=== PATIENT | male | born 1950 | race Caucasian/White ===

== ENCOUNTER 2018-11-06 09:17 | Emergency (ER) | payer OTHER ==
[~2018-11-06] VITALS: Ht 185.4 cm; Wt 102.1 kg
[~2018-11-06 09:17] MED LIST: ADVIL200 M1 PO; AMOX TR-K CLV1 EAC4 PO; AUGMENTIN 875875 MG PO; CYCLOBENZAPRINE5 MG PO; HYDROCODON-ACE1 EAC7 PO; LORAZEPAM 1 MG T1 M1 PO; MIRALAX255 GM PO; NICOTINE PATCH1 EAC1 TRANSDERM; PAIN & FEVER325 MG PO
[2018-11-06 09:57] LABS: ABSOLUTE BASOPHILS 0.1 thou/uL (0.0-0.2); ABSOLUTE EOSINOPHILS 0.1 thou/uL (0.0-0.7); ABSOLUTE LYMPHOCYTES 1.9 thou/uL (0.8-5.3); ABSOLUTE MONOCYTES 0.5 thou/uL (0.0-1.2); ABSOLUTE NEUTROPHILS 3.2 thou/uL (1.6-8.1); BASOPHILS 0.9 %; EOSINOPHILS 2.2 %; HEMATOCRIT 43.2 % (42.0-52.0); HEMOGLOBIN 14.8 gm/dL (14.0-18.0); LYMPHOCYTES 32.5 %; MCH 31.4 pg (26.0-34.0); MCHC 34.1 g/dL (28.0-37.0); MONOCYTES 7.9 %; MPV 8.4 fl. (7.2-11.1); NUCLEATED RBCS 0 /100WBC; PLATELET COUNT* 303 thou/uL (150-400); POLYS 56.5 %; RDW-CV 13.3 % (10.5-14.5); WBC 5.7 thou/uL (4.0-11.0)
[2018-11-06 10:15] LABS: CALCIUM 8.9 mg/dL (8.5-10.1); CREATININE 0.9 mg/dL (0.6-1.3); POTASSIUM 3.9 mmol/L (3.5-5.1)
[2018-11-06] MEDS ORDERED: PROTONIX 20 MG20 MG PO (10:16)
[2018-11-06] MEDS ORDERED: ZYLOPRIM300 MG PO (10:16)
[2018-11-06] MEDS ORDERED: ALLERGY MEDICATION (10:17)
[2018-11-06 10:20] LABS: ALBUMIN 3.5 g/dL (3.4-5.0); TOTAL BILIRUBIN 0.5 mg/dL (<0.1-1.0); TOTAL PROTEIN 7.6 g/dL (6.4-8.2)
[2018-11-06] MEDS ORDERED: REGLAN 10 MG TA10 MG PO (12:51)
[2018-11-06 13:12] VITALS: BP 164/86
== END 2018-11-06 13:13 | disposition home or self-care (01) ==
LOC: M.ERS 09:17
PROVIDERS: Personal Emergency Response Attendant
DX: K22.2 Esophageal obstruction (principal); F17.210 Nicotine dependence, cigarettes, uncomplicated; M10.9 Gout, unspecified

== ENCOUNTER → 2018-12-18 | Outpatient (CLI) | payer OTHER ==
[~2018-12-18] MED LIST changes: +ALLERGY MEDICATION; +PROTONIX 20 MG20 MG PO; +REGLAN 10 MG TA10 MG PO; +ZYLOPRIM300 MG PO
== END ==
LOC: M.RAD 12-09 15:12 → M.ULTRA 09:00
DX: Z13.6 Encounter for screening for cardiovascular disorders (principal); M81.0 Age-related osteoporosis without current pathological fracture

== ENCOUNTER 2019-03-30 14:21 | Emergency (ER) | payer OTHER ==
[~2019-03-30] VITALS: Ht 185.4 cm; Wt 102.1 kg
[2019-03-30 15:27] LABS: ABSOLUTE BASOPHILS 0.1 thou/uL (0.0-0.2); ABSOLUTE EOSINOPHILS 0.1 thou/uL (0.0-0.7); ABSOLUTE LYMPHOCYTES 2.1 thou/uL (0.8-5.3); ABSOLUTE MONOCYTES 0.6 thou/uL (0.0-1.2); ABSOLUTE NEUTROPHILS 5.7 thou/uL (1.6-8.1); BASOPHILS 1.2 %; EOSINOPHILS 1.2 %; HEMATOCRIT 43.5 % (42.0-52.0); HEMOGLOBIN 14.8 gm/dL (14.0-18.0); LYMPHOCYTES 24.4 %; MCH 30.8 pg (26.0-34.0); MCV 90.5 fL (80.0-100.0); MONOCYTES 6.6 %; MPV 8.5 fl. (7.2-11.1); NUCLEATED RBCS 0 /100WBC; PLATELET COUNT* 363 thou/uL (150-400); POLYS 66.6 %; RBC 4.81 mil/uL (4.50-6.00); RDW-CV 14.7 % (10.5-14.5); WBC 8.6 thou/uL (4.0-11.0)
[2019-03-30 15:37] LABS: APTT 32.2 Seconds (25.0-31.3); INR 1.1; PROTIME 11.2 Seconds (9.20-11.50)
[2019-03-30 15:39] LABS: CREATININE 0.8 mg/dL (0.6-1.3)
[2019-03-30 15:43] LABS: ALBUMIN 3.8 g/dL (3.4-5.0); TOTAL BILIRUBIN 0.7 mg/dL (<0.1-1.0); TOTAL PROTEIN 8.2 g/dL (6.4-8.2)
[2019-03-30] MEDS ORDERED: ONDANSETRON HCL4 M2 PO (16:47)
[2019-03-30 17:38] VITALS: BP 133/81
== END 2019-03-30 17:40 | disposition home or self-care (01) ==
LOC: M.ERS 14:21
PROVIDERS: Nurse Practitioner Family
DX: T18.9XXA Foreign body of alimentary tract, part unspecified, initial encounter (principal); R11.10 Vomiting, unspecified; Y92.89 Other specified places as the place of occurrence of the external cause